=== PATIENT | male | born 1995 | race Two or more races ===

== ENCOUNTER 2024-08-05 07:12 | Outpatient (CLI) | payer OTHER, SELFPAY | END 2024-08-05 07:13 | disposition home or self-care (01) | LOC: AMB 08-30 13:53 | PROVIDERS: Visit Provider Family Medicine | DX: S01.91XA Laceration without foreign body of unspecified part of head, initial encounter (principal); V48.0XXA Car driver injured in noncollision transport accident in nontraffic accident, initial encounter; Y92.411 Interstate highway as the place of occurrence of the external cause | CPT/HCPCS: A0425; A0427 ==